=== PATIENT | female | born 1940 | race Asian ===

== ENCOUNTER 2017-01-27 10:55 | Emergency (ER) | payer SELFPAY ==
[~2017-01-27] VITALS: Ht 152.4 cm; Wt 54.4 kg
[2017-01-27 12:28] LABS: BASOPHIL % 0.6 % (0-2); PLATELET COUNT 252 x10^3mcL (130-400); RED CELL DISTRIBUTION WIDTH 13.9 % (11.5-14.5)
[2017-01-27 12:38] LABS: CALCIUM 8.8 mg/dL (8.5-10.1); CARBON DIOXIDE 31.9 mmol/L (21-32); CHLORIDE SERUM 103 mmol/L (98-107); CREATININE SERUM 0.9 mg/dL (0.6-1.0); GLUCOSE SERUM 125 mg/dL (74-106); POTASSIUM SERUM 3.5 mmol/L (3.5-5.1); SODIUM SERUM 141 mmol/L (136-145)
[2017-01-27 12:42] LABS: ALBUMIN 3.6 g/dL (3.4-5.0); ALKALINE PHOSPHATASE 88 U/L (46-116); ALT/SGPT 18 U/L (14-59); AST/SGOT 34 U/L (15-37); BILIRUBIN TOTAL 0.6 mg/dL (0.20-1.00); MAGNESIUM 2.2 mg/dL (1.8-2.4); TOTAL PROTEIN, SERUM 7.7 g/dL (6.4-8.2)
[2017-01-27 12:58] VITALS: BP 129/64
== END 2017-01-27 13:40 | disposition home or self-care (01) ==
LOC: ED 10:55
PROVIDERS: Emergency Medicine
DX: R42 Dizziness and giddiness (principal); I10 Essential (primary) hypertension
CPT/HCPCS: J7030; Q0092

== ENCOUNTER 2017-07-07 10:02 | Emergency (ER) | payer SELFPAY ==
[~2017-07-07] VITALS: Ht 147.3 cm; Wt 56.7 kg
[2017-07-07 11:06] LABS: BASOPHIL % 1.3 % (0-2); PLATELET COUNT 282 x10^3mcL (130-400); RED CELL DISTRIBUTION WIDTH 14.2 % (11.5-14.5)
[2017-07-07 11:07] LABS: microscopic required? NO
[2017-07-07 11:17] LABS: UA SPECIFIC GRAVITY <=1.005 (1.005-1.035); urine erythrocyte NEGATIVE (NEGATIVE)
[2017-07-07 11:28] LABS: CHLORIDE SERUM 105 mmol/L (98-107); CREATININE SERUM 0.9 mg/dL (0.6-1.0); GLUCOSE SERUM 173 mg/dL (74-106); POTASSIUM SERUM 3.2 mmol/L (3.5-5.1); SODIUM SERUM 143 mmol/L (136-145)
[2017-07-07 11:32] LABS: ALBUMIN 3.8 g/dL (3.4-5.0); ALKALINE PHOSPHATASE 81 U/L (46-116); ALT/SGPT 14 U/L (14-59); AST/SGOT 13 U/L (15-37); BILIRUBIN TOTAL 0.31 mg/dL (0.20-1.00)
[2017-07-07 11:33] LABS: TOTAL PROTEIN, SERUM 8.6 g/dL (6.4-8.2)
[2017-07-07 12:47] VITALS: BP 137/66
== END 2017-07-07 12:51 | disposition home or self-care (01) ==
LOC: ED 10:02
PROVIDERS: Emergency Medicine
DX: R42 Dizziness and giddiness (principal); E11.9 Type 2 diabetes mellitus without complications; I10 Essential (primary) hypertension; Z79.84 Long term (current) use of oral hypoglycemic drugs
CPT/HCPCS: 82962; J2405; J8597; Q0092